=== PATIENT | female | born 1970 | race Caucasian/White ===

== ENCOUNTER 2019-01-29 05:44 | Day surgery (SDC) | payer OTHER ==
[2019-01-17 10:51] LABS: HEMATOCRIT 39.8 % (36.0-47.0); HEMOGLOBIN 13.3 g/dL (12.0-15.5); MEAN CORPUSCULAR HEMOGLOBIN 28.7 pg (27.0-33.4); MEAN CORPUSCULAR HGB CONC 33.3 g/dL (32.0-36.0); MEAN CORPUSCULAR VOLUME 86 fl (80-97); PLATELET COUNT 421 10^3/uL (150-450); RED BLOOD COUNT 4.62 10^6/uL (3.72-5.28); RED CELL DISTRIBUTION WIDTH 14.7 % (11.5-14.0); WHITE BLOOD COUNT 7.1 10^3/uL (4.0-10.5)
--- NOTE | 2019-01-17 10:57 | RADIOLOGY REPORT (SQ) ---
EXAM DESCRIPTION: CHEST PA/LATERAL COMPLETED DATE/TIME: 01/17/2019 10:42 am REASON FOR STUDY: PREOP COMPARISON: None. EXAM PARAMETERS: NUMBER OF VIEWS: two views TECHNIQUE: Digital Frontal and Lateral radiographic views of the chest acquired. RADIATION DOSE: NA LIMITATIONS: none FINDINGS: LUNGS AND PLEURA: No opacities, masses or pneumothorax. No pleural effusion. MEDIASTINUM AND HILAR STRUCTURES: No masses or contour abnormalities. HEART AND VASCULAR STRUCTURES: Heart normal size. No evidence for failure. BONES: No acute findings. HARDWARE: None in the chest. OTHER: No other significant finding. IMPRESSION: NO SIGNIFICANT RADIOGRAPHIC FINDING IN THE CHEST. TECHNICAL DOCUMENTATION: JOB ID: [id number] [employer]- All Rights Reserved Reading location - IP/workstation name: [email or web address]
[2019-01-17 10:58] LABS: APPEARANCE,URINE CLEAR; BILIRUBIN,URINE NEGATIVE (NEGATIVE); COLOR,URINE YELLOW; GLUCOSE, URINE NEGATIVE (NEGATIVE); KETONES,URINE NEGATIVE (NEGATIVE); LEUKOCYTE ESTERASE,URINE NEGATIVE (NEGATIVE); NITRITE,URINE NEGATIVE (NEGATIVE); PROTEIN,URINE NEGATIVE (NEGATIVE); URINE SPECIFIC GRAVITY 1.015; UROBILINOGEN,URINE NEGATIVE mg/dL (<2.0)
[2019-01-17 11:21] LABS: ALBUMIN 4.4 g/dL (3.5-5.0); ALKALINE PHOSPHATASE 101 U/L (38-126); ANION GAP 9 (5-19); ASPARTATE AMINO TRANSFERASE 22 U/L (14-36); BILIRUBIN,DIRECT 0.2 mg/dL (0.0-0.4); BILIRUBIN,TOTAL 0.3 mg/dL (0.2-1.3); BLOOD UREA NITROGEN 11 mg/dL (7-20); CALCIUM 9.8 mg/dL (8.4-10.2); CARBON DIOXIDE 25 mmol/L (22-30); CHLORIDE 106 mmol/L (98-107); GLUCOSE 96 mg/dL (75-110); POTASSIUM 5.1 mmol/L (3.6-5.0); TOTAL PROTEIN 7.4 g/dL (6.3-8.2)
--- NOTE | 2019-01-17 12:21 | EKG REPORT ---
SEVERITY:- ABNORMAL ECG - SINUS RHYTHM LEFT VENTRICULAR HYPERTROPHY : Confirmed by: Isaac Bardales MD 17-Jan-2019 12:21:06
[~2019-01-29 05:44] MED LIST: CEFAZOLIN SODIUM 2 GM in DEXTROSE 5%-WATER 100 ML IV PRN; LACTATED RINGERS 1000 ML IV PRN; LIDOCAINE 0.5% INJ-PF (5 MG/ML) 50 ML SDV SUBCUT PRN
[2019-01-29] MEDS ORDERED: SUGAMMADEX SODIUM 200 MG/2 ML SDV IV ONE (06:19)
[2019-01-29] MEDS ORDERED: FENTANYL CITRATE INJ/PF 250 MCG/5 ML AMPULE ONE (06:19)
[2019-01-29] MEDS ORDERED: DEXAMETHASONE SOD PHOSPHATE INJ 4 MG/1 ML VIAL ONE (06:19)
[2019-01-29] MEDS ORDERED: ONDANSETRON HCL INJ/PF 4 MG/2 ML SDV ONE (06:19)
[2019-01-29] MEDS ORDERED: MIDAZOLAM 2 MG/2 ML INJ ONE (06:19)
[2019-01-29] MEDS ORDERED: FENTANYL CITRATE INJ/PF 100 MCG/2 ML AMPUL ONE (06:19)
[2019-01-29] MEDS ORDERED: PROPOFOL INJ 200 MG/20 ML VIAL IV ONE (06:20)
[2019-01-29] MEDS ORDERED: LIDOCAINE 0.5% INJ-PF (5 MG/ML) 50 ML SDV ONE (06:20)
[2019-01-29] MEDS ORDERED: BUPIVACAINE HCL 0.25 % INJ/PF (2.5 MG/1 ML) 30 ML VIAL ONE (07:15)
[2019-01-29] MEDS ORDERED: FENTANYL CITRATE INJ/PF 100 MCG/2 ML AMPUL IV PRN ×3 (08:12)
[2019-01-29] MEDS ORDERED: PROMETHAZINE HCL INJ 25 MG/1 ML VIAL IV PRN ×2 (08:12)
[2019-01-29] MEDS ORDERED: ONDANSETRON HCL INJ/PF 4 MG/2 ML SDV IV PRN (08:12)
[2019-01-29] MEDS ORDERED: MEPERIDINE HCL/PF INJ 25 MG/1 ML DISP.SYRIN IV PRN (08:12)
[2019-01-29] MEDS ORDERED: HYDROMORPHONE HCL 2 MG TABLET PO PRN (09:30)
[2019-01-29] MEDS ORDERED: ONDANSETRON HCL 8 MG TABLET PO PRN (09:31)
--- NOTE | 2019-01-29 09:35 | OPERATIVE REPORT E ---
Operative Report NAME: CAT GODDARD : 1970 AGE: 48Y DATE OF SURGERY: 01/29/2019 ROOM: PREOPERATIVE DIAGNOSIS: SEVERE DYSMENORRHEA. POSTOPERATIVE DIAGNOSIS: SEVERE DYSMENORRHEA. OPERATION: Robotic assisted hysterectomy with bilateral salpingo-oophorectomy. SURGEON: Baldev WEEMS M.D. ESTIMATED BLOOD LOSS: Less than 100 mL TISSUE REMOVED: Uterus, tubes, and ovaries. PROCEDURE: The patient was placed in the dorsal lithotomy position, prepped and draped in usual sterile fashion. A speculum was placed. The cervix visualized and grasped with a single-tooth tenaculum. The uterus sounded to a depth of 10 cm. The uterine manipulator was placed per protocol. Speculum was removed. Attention turned to the abdomen where a supraumbilical midline incision was made. Trocar was introduced. Insufflation of the abdomen and then visualization of the tubes, uterus, and ovaries. Second puncture made to the right. A 5 was introduced. Third to the left from the midline and a 5 was introduced and a accessory port was introduced above the suprailiac crest. Robot was docked in usual fashion. Using monopolar and bipolar cautery, the right infundibulo pelvis was identified and divided. This was continued down to broad ligament to the round ligament which was cauterized and divided. Procedure was repeated on the left. The uterus was cauterized on both sides with bipolar cautery to the level of the cervix and the bladder flap was created with sharp dissection. The cervix and uterus were then circumscribed with monopolar cautery. Tubes, uterus, and ovaries were removed through the vagina. It was not possible to sew the cuff from above secondary to body habitus. Attention was turned to the pelvis and the cuff was sewed below using 0 V-care. Attention was turned back to the abdomen and the cuff was inspected and hemostasis was noted. The abdomen was deflated and trocar sleeves removed. Incision was closed with a 4-0 Vicryl subcutaneous and Dermabond on the top. The patient tolerated well. Her urine remained clear throughout procedure. She was taken to recovery in good condition. DICTATING PHYSICIAN: Baldev WEEMS M.D. [id number] Y#: [id number] ID: [id number] JOB#: [id number] ACCT: [id number] cc:Baldev WEEMS M.D. >
[2019-01-29] MEDS: FENTANYL CITRATE INJ/PF 100 MCG/2 ML AMPUL ONE ×2 (09:36→09:46)
[2019-01-29] MEDS ORDERED: KETOROLAC TROMETHAMINE INJ/PF 30 MG/1 ML SDV ONE (09:37)
[2019-01-29] MEDS ORDERED: ACETAMINOPHEN 1,000 MG/100 ML RTUPB IV ONE (09:37)
[2019-01-29] MEDS ORDERED: HYDROMORPHONE HCL INJ/PF 2 MG/ML AMPULE ONE (09:57)
[2019-01-29] MEDS: IBUPROFEN 800 MG TABLET PO SCH ×2 (13:02→15:18)
[2019-01-29] MEDS ORDERED: ROCURONIUM BROMIDE INJ 50 MG/5 ML VIAL IV ONE (14:33)
[2019-01-29] MEDS ORDERED: SUCCINYLCHOLINE CHLORIDE INJ 200 MG/10 ML VIAL ONE (14:33)
[2019-01-29 16:15] VITALS: BP 126/59
== END 2019-01-29 18:30 | disposition home or self-care (01) ==
LOC: OROUT 05:44 → 2N 11:03 → OROUT 18:30
PROVIDERS: ATTEND Obstetrics & Gynecology Gynecology
DX: N94.6 Dysmenorrhea, unspecified (principal); N80.0 Endometriosis of uterus; N93.8 Other specified abnormal uterine and vaginal bleeding; Z87.891 Personal history of nicotine dependence; E66.9 Obesity, unspecified; Z68.42 Body mass index [BMI] 45.0-49.9, adult; N83.8 Other noninflammatory disorders of ovary, fallopian tube and broad ligament
CPT/HCPCS: 58552; S2900; 36415; 71046; 80053; 81001; 81025; 840; 84132; 85027; 86850; 86900; 86901; 88307; 93005; 93010; J0131; J0330; J0690; J1100; J1170; J1885; J2250; J2405; J2704; J3010; J3490; J7060